=== PATIENT | male | born 1990 | race Caucasian/White ===

== ENCOUNTER 2019-01-03 23:24 | Emergency (ER) | payer SELFPAY ==
[2019-01-04] MEDS ORDERED: CEPHALEXIN 500 MG CAPSULE PO ONE (00:52)
[2019-01-04] MEDS ORDERED: LIDOCAINE 2% URO-JET 5 ML KIT MM ONE (01:02)
[2019-01-04] MEDS ORDERED: HYDROCODONE/ACETAMINOPHEN 5-325 MG TABLET PO ONE (01:02)
[2019-01-04 01:17] VITALS: BP 140/82
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
--- NOTE | 2019-01-05 07:41 | EKG REPORT ---
SEVERITY:- ABNORMAL ECG - SINUS TACHYCARDIA BORDERLINE T ABNORMALITIES, INFERIOR LEADS BORDERLINE PROLONGED QT INTERVAL INCOMPLETE RBBB : Confirmed by: Jon Prajapati MD 05-Jan-2019 07:39:53
== END 2019-01-04 01:17 | disposition home or self-care (01) ==
LOC: ER 23:24
DX: S31.109A Unspecified open wound of abdominal wall, unspecified quadrant without penetration into peritoneal cavity, initial encounter (principal); W34.00XA Accidental discharge from unspecified firearms or gun, initial encounter; F17.210 Nicotine dependence, cigarettes, uncomplicated; I10 Essential (primary) hypertension
CPT/HCPCS: 93005; 99285; 93010; J3490

== ENCOUNTER 2019-09-27 14:00 | Emergency (ER) | payer SELFPAY ==
--- NOTE | 2019-09-27 15:45 | ER Document Report ---
ED Cardiac - General Chief Complaint: Chest Pain Stated Complaint: CHEST PAIN Time Seen by Provider: 09/27/19 15:18 Mode of Arrival: Ambulatory Information source: Patient Notes: 29-year-old male presents to the emergency department with a complaint of severe pain on the left side of his chest radiating around his scapula. He was at work at the time of onset of pain. He states pain is a 9/10. He has a history of coarctation of the aorta. Never followed up with his cardiothoracic surgery f for repair. He denies that he is severe pain like this in the past. Patient does admit to using cocaine and heroin last night. He was at work today when his pain began. TRAVEL OUTSIDE OF THE [place] IN LAST 30 DAYS: No - Related Data Allergies/Adverse Reactions: Sulfa (Sulfonamide Antibiotics) Allergy (Verified 12/03/14 09:54) Past Medical History - Social History Smoking Status: Unknown if Ever Smoked Family History: Reviewed & Not Pertinent - Past Medical History Cardiac Medical History: Reports: Hx Hypertension Renal/ Medical History: Denies: Hx Peritoneal Dialysis Skin Medical History: Reports Hx Cellulitis Past Surgical History: Reports: Hx Cardiac Catheterization - Immunizations Hx Diphtheria, Pertussis, Tetanus Vaccination: Yes Review of Systems - Review of Systems Notes: Constitutional: Negative for fever. HENT: Negative for sore throat. Eyes: Negative for visual changes. Cardiovascular: + Chest pain. Respiratory: Negative for shortness of breath. Gastrointestinal: Negative for abdominal pain, vomiting or diarrhea. Genitourinary: Negative for dysuria. Musculoskeletal: Negative for back pain. Skin: Negative for rash. Neurological: Negative for headaches, weakness or numbness. 10 point ROS negative except as marked above and in HPI. Physical Exam - Vital signs Vitals: Temp Pulse Resp BP Pulse Ox 97.4 F 80 16 138/83 H 99 09/27/19 14:01 09/27/19 14:01 09/27/19 14:09/27/19 14:09/27/19 14:01 - Notes Notes: PHYSICAL EXAMINATION: Physical Exam: General: Well-nourished well-developed 29-year-old male in no acute distress HEENT: NC/AT, pupils equal round and reactive to light, MM moist,nares clear, oropharynx clear, airway patent Neck: supple, no adenopathy, no masses. Good range of motion Lungs: clear, no wheezing, no rales no rhonchi CVS: Regular rate and rhythm no murmur gallop or rub Abdomen: Soft, active, nontender, no masses, no hepatosplenomegaly Ext: No edema, clubbing or cyanosis. Neuro: Alert and responsive, moving all 4 extremities on command, cranial nerves intact, no focal findings Skin: Intact no open lesions, no rash PSYCH: Normal mood, normal affect. Course - Vital Signs Vital signs: Temp Pulse Resp BP Pulse Ox 98.3 F 80 21 H 115/72 94 09/27/19 18:50 09/27/19 14:01 09/27/19 18:31 09/27/19 18:31 09/27/19 18:31 - Laboratory Result Diagrams: 09/27/19 14:28 09/27/19 14:28 Laboratory results interpreted by me: 09/27/19 09/27/19 14:28 14:28 WBC 10.6 H MCHC 36.4 H Sodium 135.8 L - Diagnostic Test Radiology reviewed: Image reviewed, Reports reviewed - Chest x-ray: No acute cardiopulmonary findings CTA chest with no acute cardiopulmonary abnormalities. - EKG Interpretation by Me EKG shows normal: Sinus rhythm Rate: Normal - Rate of 74. Discharge - Discharge Clinical Impression: Non-cardiac chest pain, Musculoskeletal chest pain Condition: Good Disposition: HOME, SELF-CARE Instructions: Chest Pain of Unclear Cause ([facility]) Additional Instructions: You were seen in the emergency department today for your chest pain, it does not appear to be of acute cardiovascular origin. You may use the ibuprofen and muscle relaxant as prescribed for your chest pain. I would advise you to just discontinue the use of any illicit drugs. The listed drugs such as cocaine or heroin can sometimes cause vascular spasms which could cause symptoms of chest pain. Given your normal EKG, labs, x-ray imaging no acute injury to your heart or lungs has occurred. Please follow-up with a primary care doctor as needed, I will give you the name of an outpatient clinic that you might schedule a follow- up with. If you develop new problems or other concerns you return to the emergency department. Prescriptions: Baclofen [Baclofen 10 mg Tablet] 10 mg PO TID #14 tablet Naproxen [Naprosyn] 500 mg PO BID #20 tablet Forms: Return to Work
--- NOTE | 2019-09-27 16:35 | RADIOLOGY REPORT (SQ) ---
EXAM DESCRIPTION: CHEST SINGLE VIEW IMAGES COMPLETED DATE/TIME: 09/27/2019 4:27 pm REASON FOR STUDY: Chest pain COMPARISON: None. EXAM PARAMETERS: NUMBER OF VIEWS: One view. TECHNIQUE: Single frontal radiographic view of the chest acquired. RADIATION DOSE: NA LIMITATIONS: None. FINDINGS: LUNGS AND PLEURA: No opacities, masses or pneumothorax. No pleural effusion. MEDIASTINUM AND HILAR STRUCTURES: No masses. Contour normal. HEART AND VASCULAR STRUCTURES: Borderline cardiomegaly. Normal vasculature. BONES: No acute findings. HARDWARE: None in the chest. OTHER: No other significant finding. IMPRESSION: NO ACUTE RADIOGRAPHIC FINDING IN THE CHEST. TECHNICAL DOCUMENTATION: JOB ID: [id number] 2010 [employer]- All Rights Reserved Reading location - IP/workstation name: [email or web address]
--- NOTE | 2019-09-27 16:56 | RADIOLOGY REPORT (SQ) ---
EXAM DESCRIPTION: CTA CHEST IMAGES COMPLETED DATE/TIME: 09/27/2019 4:32 pm REASON FOR STUDY: chest Pain COMPARISON: None. TECHNIQUE: CT scan of the chest performed using helical scanning technique with dynamic intravenous contrast injection. Images reviewed with lung, soft tissue and bone windows. Reconstructed coronal and sagittal MPR images reviewed. Additional 3 dimensional post-processing performed to develop Maximal Intensity Projection images (IN P). All images stored on PACS. All CT scanners at this facility use dose modulation, iterative reconstruction, and/or weight based d osing when appropriate to reduce radiation dose to as low as reasonably achievable (ALARA). [facility]: Dose Right [facility]: CareDose [facility]: Dose Right [facility]: Teradose 4D [facility]: Alector CONTRAST TYPE AND DOSE: contrast/concentration: Isovue 350.00 mg/ml; Total Contrast Delivered: 56.0 ml; Total Saline Delivered: 80.0 ml Contrast bolus optimized for the pulmonary arteries. Not diagnostic for the aorta. RENAL FUNCTION: None required. The patient is less than 50 years old. RADIATION DOSE: CT Rad equipment meets quality standard of care and radiation dose reduction techniq ues were employed. CTDIvol: 15.6 - 30.0 mGy. DLP: 703 mGy-cm. . LIMITATIONS: None. FINDINGS: LUNGS AND PLEURA: No focal infiltrates. No worrisome pulmonary nodules. No pleural effusions. No pneumothorax. AORTA AND GREAT VESSELS: Patient gives a history of coarctation of the aorta. There is mild aortic w all calcification just distal to the left subclavian artery. This is best shown on reconstruction se basia 203, images 27-34. No flow significant stenosis of the thoracic aorta in this area. No thoraci c aortic dissection or great vessel dissection. No thoracic aortic aneurysm. HEART: No pericardial effusion. No significant coronary artery calcifications. PULMONARY ARTERIES: No emboli visualized in the main pulmonary arteries or the segmental branches. HILAR AND MEDIASTINAL STRUCTURES: No identified masses or abnormal nodes. HARDWARE: None in the chest. UPPER ABDOMEN: No significant findings. Limited exam. THYROID AND OTHER SOFT TISSUES: No masses. No adenopathy. BONES: No acute or significant finding. 3D MIPS: Confirm above findings. OTHER: No other significant finding. IMPRESSION: No thoracic aortic dissection or aneurysm. Aortic wall calcification just distal to the left subclavian artery in the area of prior coarct. COMMENT: Quality ID # [id number]: Final reports with documentation of one or more dose reduction techniques (e.g., Automated exposure control, adjustment of the mA and/or kV according to patient size, use of iterative reconstruction technique) TECHNICAL DOCUMENTATION: JOB ID: [id number] 2010 [employer]- All Rights Reserved Reading location - IP/workstation name: [id number]
[2019-09-27 17:16] LABS: ABSOLUTE EOSINOPHILS # (AUTO) 0.1 10^3/uL (0.0-0.6); ABSOLUTE MONOCYTES (AUTO) 0.9 10^3/uL (0.1-1.4); MEAN CORPUSCULAR HEMOGLOBIN 30.2 pg (27.0-33.4); RED BLOOD COUNT 4.95 10^6/uL (4.35-5.55); TOTAL CELLS COUNTED % (AUTO) 100 %
[2019-09-27 17:22] LABS: ABSOLUTE LYMPHOCYTES (AUTO) 1.5 10^3/uL (0.5-4.7); BASOPHILS % (AUTO) 0.2 % (0-2); EOSINOPHILS % (AUTO) 0.9 % (0-6); HEMATOCRIT 41.2 % (37.9-51.0); LYMPHOCYTES % (AUTO) 14.4 % (13-45); MEAN CORPUSCULAR HGB CONC 36.4 g/dL (32.0-36.0); MEAN CORPUSCULAR VOLUME 83 fl (80-97); MONOCYTES % (AUTO) 8.6 % (3-13); PLATELET COUNT 229 10^3/uL (150-450); RED CELL DISTRIBUTION WIDTH 13.7 % (11.5-14.0); SEGMENTED NEUTROPHILS % (AUTO) 75.9 % (42-78); WHITE BLOOD COUNT 10.6 10^3/uL (4.0-10.5)
[2019-09-27 17:24] LABS: ALBUMIN 4.3 g/dL (3.5-5.0); ALKALINE PHOSPHATASE 65 U/L (38-126); ANION GAP 9 (5-19); ASPARTATE AMINO TRANSFERASE 29 U/L (17-59); BILIRUBIN,TOTAL 0.3 mg/dL (0.2-1.3); BLOOD UREA NITROGEN 19 mg/dL (7-20); CALCIUM 9.4 mg/dL (8.4-10.2); CARBON DIOXIDE 26 mmol/L (22-30); CHLORIDE 101 mmol/L (98-107); CREATINE KINASE 79 U/L (55-170); GLUCOSE 95 mg/dL (75-110); POTASSIUM 3.8 mmol/L (3.6-5.0); TOTAL PROTEIN 7.2 g/dL (6.3-8.2)
[2019-09-27 17:36] LABS: CREATINE KINASE MB 0.78 ng/mL (<4.55)
[2019-09-27 18:00] LABS: TROPONIN I < 0.012 ng/mL
[2019-09-27] MEDS ORDERED: KETOROLAC TROMETHAMINE INJ/PF 30 MG/1 ML SDV IV ONE (18:13)
[2019-09-27 18:45] VITALS: BP 115/72
[2019-09-27 20:03] LABS: URINE AMPHETAMINES SCREEN NEGATIVE; URINE BARBITURATES SCREEN NEGATIVE; URINE BENZODIAZEPINES SCREEN NEGATIVE; URINE METHADONE SCREEN NEGATIVE; URINE PHENCYCLIDINE SCREEN NEGATIVE
[2019-09-27 20:04] LABS: URINE COCAINE SCREEN UNCONFIRMED POSITIVE; URINE MARIJUANA (THC) SCREEN UNCONFIRMED POSITIVE
--- NOTE | 2019-09-27 21:56 | EKG REPORT ---
SEVERITY:- ABNORMAL ECG - SINUS RHYTHM NONSPECIFIC T ABNORMALITIES, INFERIOR LEADS : Confirmed by: Mariam Murcia MD 27-Sep-2019 21:55:52
== END 2019-09-27 18:50 | disposition home or self-care (01) ==
LOC: ER 14:00
DX: R07.89 Other chest pain (principal); I10 Essential (primary) hypertension; Q25.1 Coarctation of aorta; Z88.2 Allergy status to sulfonamides
CPT/HCPCS: 93005; 99285; 96374; 36415; 82553; 82550; 85025; 80053; 84484; 80307; 71045; 71275; 93010; J1885

== ENCOUNTER 2020-02-18 04:55 | Inpatient (IN) | payer SELFPAY ==
[2020-02-18] MEDS ORDERED: NORMAL SALINE 1000 ML 1,000 ML IV ONE ×5 (06:37→11:30)
[2020-02-18] MEDS ORDERED: KETOROLAC TROMETHAMINE INJ/PF 30 MG/1 ML SDV IV ONE (06:37)
--- NOTE | 2020-02-18 07:02 | ER Document Report ---
Entered by AJAY FRAGA SCRIBE 02/18/20 0642 Acting as scribe for:ROSALIE DONOHUE MD ED General - General Chief Complaint: Pain All Over Stated Complaint: BODY PAIN Time Seen by Provider: 02/18/20 06:15 Mode of Arrival: Ambulatory Information source: Patient Notes: This 29 year old male patient presents to the emergency department today with complaints of left shoulder, left hip, and left posterior knee pain. Patient reports that he felt fine when he went to bed last night and he was awoken with this pain at 3:00 AM. He reports taking a hot shower prior to arrival with no relief. He denies any falls or trauma. This patient admitted to IV heroin usage, cocaine, and marijuana during his last visit this ED. TRAVEL OUTSIDE OF THE [place] IN LAST 30 DAYS: No - Related Data Allergies/Adverse Reactions: Sulfa (Sulfonamide Antibiotics) Allergy (Verified 12/03/14 09:54) Past Medical History - General Information source: Patient - Social History Smoking Status: Current Every Day Smoker Cigarette use (# per day): Yes Chew tobacco use (# tins/day): No Frequency of alcohol use: None Drug Abuse: None Lives with: Family Family History: Reviewed & Not Pertinent Patient has homicidal ideation: No - Past Medical History Cardiac Medical History: Reports: Hx Hypertension Skin Medical History: Reports Hx Cellulitis Past Surgical History: Reports: Hx Cardiac Catheterization, Hx Vascular Surgery - Stent in right groin as a child - Immunizations Hx Diphtheria, Pertussis, Tetanus Vaccination: Yes Review of Systems - Review of Systems Constitutional: No symptoms reported EENT: No symptoms reported Cardiovascular: No symptoms reported Respiratory: No symptoms reported Gastrointestinal: No symptoms reported Genitourinary: No symptoms reported Male Genitourinary: No symptoms reported Musculoskeletal: See HPI, Joint pain - Left shoulder, Left hip, Left knee, Muscle pain, Muscle stiffness Skin: No symptoms reported Hematologic/Lymphatic: No symptoms reported Neurological/Psychological: No symptoms reported -: Yes All other systems reviewed and negative Physical Exam - Vital signs Vitals: Temp 97.8 F 02/18/20 05:04 - Notes Notes: Physical Exam: General: Alert, appears uncomfortable. HEENT: Normocephalic. Atraumatic. PERRL. Extraocular movements intact. Oropharynx clear. Neck: Supple. Non-tender. Respiratory: No respiratory distress. Clear and equal breath sounds bilaterally. Cardiovascular: Regular rate and rhythm. Abdominal: Normal Inspection. Non-tender. No distension. Normal Bowel Sounds. Back: No gross abnormalities. Extremities: Moves all four extremities. Upper extremities: Left shoulder is exquisitely tender to palpation with associated swelling, joint effusion. Lower extremities: There is tenderness to palpation of the left hip/buttock. Minimal tenderness to left posterior knee. Neurological: Normal cognition. AAOx4. Normal speech. Psychological: Normal affect. Normal Mood. Skin: Warm. Dry. Normal color. Course - Re-evaluation Re-evalutation: 02/18/20 11:15 The patient was evaluated during the global COVID-19 pandemic and that diagnosis was suspected/considered upon their initial presentation. Their evaluation, treatment and testing was consistent with current guidelines for patients who present with complaints or symptoms that may be related to COVID-19. - Vital Signs Vital signs: Temp Pulse Resp BP Pulse Ox 97.8 F 99 16 152/86 H 100 02/18/20 05:06 02/18/20 05:06 02/18/20 14:01 02/18/20 13:19 02/18/20 14:01 - Laboratory Result Diagrams: 02/18/20 06:57 02/18/20 06:57 Laboratory results interpreted by me: 02/18/20 02/18/20 02/18/20 06:57 06:57 06:57 WBC 16.4 H RBC 5.67 H Lymph % (Auto) 10.1 L Absolute Neuts (auto) 13.4 H Seg Neutrophils % 81.7 H Carbon Dioxide 31 H BUN 24 H Creatinine 2.17 H Est GFR ( Amer) 44 L Est GFR (MDRD) Non-Af 37 L Uric Acid 10.1 H AST 734 H ALT 134 H Creatine Kinase 72083 H CK-MB (CK-2) 86.10 H C-Reactive Protein 56.7 H Urine Protein Urine Blood 02/18/20 07:35 WBC RBC Lymph % (Auto) Absolute Neuts (auto) Seg Neutrophils % Carbon Dioxide BUN Creatinine Est GFR ( Amer) Est GFR (MDRD) Non-Af Uric Acid AST ALT Creatine Kinase CK-MB (CK-2) C-Reactive Protein Urine Protein 100 H Urine Blood LARGE H Critical Care Note - Critical Care Note Total time excluding time spent on procedures (mins): 35 Comments: At least 35 minutes spent evaluating the patient with physical exam, laboratory analysis, review of prior records. Several re-evaluations to ensure he was improving, to ensure that he was in fact getting the fluids as they were being ordered to manage his acute kidney injury. Time spent calling hospitalists to arrange his admission. Discharge - Discharge Clinical Impression: Dehydration, Acute kidney injury, Multiple substance abuse Gout attack Qualifiers: Gout site: multiple sites Gout etiology: unspecified cause Qualified Code(s): M10.9 - Gout, unspecified Rhabdomyolysis Qualifiers: Rhabdomyolysis type: non-traumatic Qualified Code(s): M62.82 - Rhabdomyolysis Condition: Stable Disposition: ADMITTED INPATIENT Admitting Provider: Wilbert (Hospitalist) Unit Admitted: IMCU I personally performed the services described in the documentation, reviewed and edited the documentation which was dictated to the scribe in my presence, and it accurately records my words and actions.
[2020-02-18 07:19] LABS: ABSOLUTE LYMPHOCYTES (AUTO) 1.7 10^3/uL (0.5-4.7); ABSOLUTE MONOCYTES (AUTO) 1.3 10^3/uL (0.1-1.4); ABSOLUTE NEUT (AUTO) 13.4 10^3/uL (1.7-8.2); BASOPHILS % (AUTO) 0.3 % (0-2); EOSINOPHILS % (AUTO) 0.2 % (0-6); HEMATOCRIT 47.8 % (37.9-51.0); HEMOGLOBIN 16.7 g/dL (13.5-17.0); LYMPHOCYTES % (AUTO) 10.1 % (13-45); MEAN CORPUSCULAR HEMOGLOBIN 29.5 pg (27.0-33.4); MEAN CORPUSCULAR VOLUME 84 fl (80-97); MONOCYTES % (AUTO) 7.7 % (3-13); PLATELET COUNT 219 10^3/uL (150-450); RED BLOOD COUNT 5.67 10^6/uL (4.35-5.55); RED CELL DISTRIBUTION WIDTH 13.4 % (11.5-14.0); SEGMENTED NEUTROPHILS % (AUTO) 81.7 % (42-78); TOTAL CELLS COUNTED % (AUTO) 100 %; WHITE BLOOD COUNT 16.4 10^3/uL (4.0-10.5)
[2020-02-18 07:47] LABS: ALBUMIN 4.3 g/dL (3.5-5.0); ALKALINE PHOSPHATASE 68 U/L (38-126); ANION GAP 8 (5-19); BILIRUBIN,DIRECT 0.4 mg/dL (0.0-0.4); BILIRUBIN,TOTAL 0.5 mg/dL (0.2-1.3); BLOOD UREA NITROGEN 24 mg/dL (7-20); C-REACTIVE PROTEIN 56.7 mg/L (<10.0); CALCIUM 8.6 mg/dL (8.4-10.2); CARBON DIOXIDE 31 mmol/L (22-30); CHLORIDE 98 mmol/L (98-107); GLUCOSE 89 mg/dL (75-110); POTASSIUM 4.2 mmol/L (3.6-5.0); TOTAL PROTEIN 7.2 g/dL (6.3-8.2); URIC ACID 10.1 mg/dL (3.5-8.5)
[2020-02-18 07:51] LABS: ASPARTATE AMINO TRANSFERASE 734 U/L (17-59)
[2020-02-18] MEDS ORDERED: METHYLPREDNISOLONE INJ 125 MG/2 ML SDV IV ONE (08:04)
[2020-02-18] MEDS ORDERED: COLCHICINE 0.6 MG TABLET PO ONE (08:06)
[2020-02-18 08:12] LABS: ERYTHROCYTE SEDIMENTATION RATE 12 mm/hr (0-15)
[2020-02-18 08:12] LABS: APPEARANCE,URINE SLIGHTLY-CLOUDY; BILIRUBIN,URINE NEGATIVE (NEGATIVE); COLOR,URINE AMBER; GLUCOSE, URINE NEGATIVE (NEGATIVE); KETONES,URINE NEGATIVE (NEGATIVE); LEUKOCYTE ESTERASE,URINE NEGATIVE (NEGATIVE); NITRITE,URINE NEGATIVE (NEGATIVE); PROTEIN,URINE 100 mg/dL (NEGATIVE); URINE SPECIFIC GRAVITY 1.019; UROBILINOGEN,URINE NEGATIVE mg/dL (<2.0)
[2020-02-18 08:19] LABS: URINE AMPHETAMINES SCREEN NEGATIVE; URINE BARBITURATES SCREEN NEGATIVE; URINE COCAINE SCREEN NEGATIVE; URINE METHADONE SCREEN NEGATIVE; URINE PHENCYCLIDINE SCREEN NEGATIVE
[2020-02-18 08:24] LABS: URINE BENZODIAZEPINES SCREEN UNCONFIRMED POSITIVE; URINE MARIJUANA (THC) SCREEN UNCONFIRMED POSITIVE
[2020-02-18 08:35] LABS: CREATINE KINASE 54834 U/L (55-170)
[2020-02-18] MEDS ORDERED: HYDROMORPHONE HCL INJ/PF 2 MG/ML AMPULE IV ONE (10:36)
[2020-02-18] MEDS ORDERED: ONDANSETRON HCL INJ/PF 4 MG/2 ML SDV IV ONE (10:36)
--- NOTE | 2020-02-18 11:11 | PDOC H&P ---
History of Present Illness Admission Date/PCP: 02/18/2020 Patient complains of: Joint pains History of Present Illness: SAAD POLLOCK is a 29 year old male with history of hypertension, drug abuse came to the emergency room with complaints of waking up with left hip pain left shoulder pain. Came to the emergency room for further evaluation. In the emergency room found to have a CK of 54,800 with elevated LFTs, acute kidney injury. Medical consult was called for admission. pt received 2 L of IV fluids in the ER at this time. Patient admitted snoring heroine yesterday. Past Medical History Cardiac Medical History: Reports: Hypertension Past Surgical History Past Surgical History: Reports: Cardiac Catheterization, Vascular Surgery - Stent in right groin as a child Social History Lives with: Family Smoking Status: Current Every Day Smoker Electronic Cigarette use?: No Hx Recreational Drug Use: Yes Drugs: Heroin, Marijuana - Advance Directive Resuscitation Status: Full Code Family History Family History: Reviewed & Not Pertinent Parental Family History Reviewed: Yes - Hypertension Children Family History Reviewed: Yes Sibling(s) Family History Reviewed.: Yes Medication/Allergy Home Medications: Clindamycin HCl [Cleocin 150 mg Capsule] 150 mg PO Q6 #40 capsule 12/03/14 Oxycodone HCl/Acetaminophen [Percocet 5-325 mg Tablet] 1 - 2 tab PO Q4H PRN #15 tablet 12/03/14 Clindamycin HCl [Cleocin 300 mg Capsule] 600 mg PO TID #42 capsule 01/17/16 Oxycodone HCl/Acetaminophen [Percocet 5-325 mg Tablet] 1 - 2 tab PO ASDIR PRN #15 tablet 01/17/16 Cephalexin Monohydrate [Keflex 500 mg Capsule] 500 mg PO Q6H 7 Days capsule 01/04/19 Baclofen [Baclofen 10 mg Tablet] 10 mg PO TID #14 tablet 09/27/19 Naproxen [Naprosyn] 500 mg PO BID #20 tablet 09/27/19 Allergies/Adverse Reactions: Sulfa (Sulfonamide Antibiotics) Allergy (Verified 12/03/14 09:54) Review of Systems Constitutional: PRESENT: fever(s) Eyes: ABSENT: visual disturbances Ears: ABSENT: hearing changes Nose, Mouth, and Throat: PRESENT: sore throat Gastrointestinal: ABSENT: abdominal pain, constipation, diarrhea, hematemesis, hematochezia, nausea, vomiting Genitourinary: ABSENT: dysuria, hematuria Musculoskeletal: PRESENT: back pain, joint swelling Neurological: ABSENT: abnormal gait, abnormal speech, confusion, dizziness, focal weakness, syncope Psychiatric: ABSENT: anxiety, depression, homidical ideation, suicidal ideation Physical Exam Vital Signs: Temp Pulse Resp BP Pulse Ox 97.8 F 99 22 H 150/90 H 95 02/18/20 05:06 02/18/20 05:06 02/18/20 05:06 02/18/20 05:06 02/18/20 05:06 Intake & Output 02/17/20 02/18/20 02/19/20 06:59 06:59 06:59 Intake Total 1999 Balance 1999 Weight 83.915 kg General appearance: PRESENT: no acute distress, cooperative, well-developed Head exam: PRESENT: atraumatic Eye exam: PRESENT: PERRLA Mouth exam: PRESENT: moist, tongue midline Neck exam: ABSENT: carotid bruit, JVD, lymphadenopathy, thyromegaly Respiratory exam: PRESENT: decreased breath sounds Cardiovascular exam: PRESENT: RRR. ABSENT: diastolic murmur, rubs, systolic murmur GI/Abdominal exam: PRESENT: normal bowel sounds, soft. ABSENT: distended, guarding, mass, organolmegaly, rebound, tenderness Rectal exam: PRESENT: deferred Extremities exam: PRESENT: full ROM. ABSENT: calf tenderness, clubbing, pedal edema Neurological exam: PRESENT: alert, awake, oriented to person, oriented to place, oriented to time, oriented to situation, CN II-XII grossly intact. ABSENT: motor sensory deficit Psychiatric exam: PRESENT: appropriate affect, normal mood. ABSENT: homicidal ideation, suicidal ideation Results Laboratory Results: 02/18/20 06:57 02/18/20 06:57 02/18/20 02/18/20 02/18/20 06:57 06:57 07:35 WBC 16.4 H RBC 5.67 H Hgb 16.7 Hct 47.8 MCV 84 MCH 29.5 MCHC 35.0 RDW 13.4 Plt Count 219 Seg Neutrophils % 81.7 H Sodium 137.2 Potassium 4.2 Chloride 98 Carbon Dioxide 31 H Anion Gap 8 BUN 24 H Creatinine 2.17 H Est GFR ( Amer) 44 L Glucose 89 Uric Acid 10.1 H Calcium 8.6 Magnesium 1.7 Total Bilirubin 0.5 AST 734 H Alkaline Phosphatase 68 C-Reactive Protein 56.7 H Total Protein 7.2 Albumin 4.3 Urine Color LUBNA Urine Appearance SLIGHTLY-CLOUDY Urine pH 5.0 Ur Specific Garita 1.019 Urine Protein 100 H Urine Glucose (UA) NEGATIVE Urine Ketones NEGATIVE Urine Blood LARGE H Urine Nitrite NEGATIVE Ur Leukocyte Esterase NEGATIVE Urine WBC (Auto) 9 Urine RBC (Auto) 1 02/18/20 06:57 Creatine Kinase 86415 H Assessment and Plan - Diagnosis (1) Rhabdomyolysis Qualifiers: Rhabdomyolysis type: non-traumatic Qualified Code(s): M62.82 - Rhabdomyolysis Is this a current diagnosis for this admission?: Yes Plan: 02/18/2020-patient is going to be admitted to [facility] for rhabdomyolysis of 54,800. Admitted as inpatient. Started on IV fluids to 500 cc/h. Patient received 2 L of IV fluids in the ER. Repeat the CK levels tomorrow. GI prophylaxis DVT prophylaxis initiated. Rhabdomyolysis most likely secondary to heroin use. (2) Multiple substance abuse Is this a current diagnosis for this admission?: Yes Plan: 02/18/2020-urine toxin is positive for opiates, marijuana, benzodiazepines. Patient admitted to snorting heroine. Counseling was provided for more than 20 minutes. (3) LISA (acute kidney injury) Is this a current diagnosis for this admission?: Yes Plan: 02/18/2020-patient's baseline serum creatinine is 0.75 on admission is 2.17. LISA most likely secondary to rhabdomyolysis. (4) Coarctation of aorta Is this a current diagnosis for this admission?: No Plan: 02/18/2020-patient is given the history of coarctation of aorta status post surgery at the age of 2 weeks. - Time Anticipated Discharge Disposition: Home, Self Care Anticipated Discharge Timeframe: within 72 hours
[2020-02-18 11:15] LABS: CREATINE KINASE MB 86.1 ng/mL (<4.55)
[2020-02-18 11:22] LABS: TROPONIN I 0.307 ng/mL
[2020-02-18] MEDS: NORMAL SALINE 1000 ML 1,000 ML IV PRN ×2 (11:56→18:31)
[2020-02-18] MEDS: HEPARIN SOD (PORCINE) 5,000 UNIT/ML 1 ML VIAL SUBCUT SCH ×2 (14:23→22:19)
[2020-02-18] MEDS: METHYLPREDNISOLONE INJ 40 MG/1 ML SDV IV SCH ×2 (14:23→22:19)
[2020-02-18] MEDS: ONDANSETRON HCL INJ/PF 4 MG/2 ML SDV IV PRN ×2 (17:24→23:52)
[2020-02-18] MEDS: PANTOPRAZOLE SODIUM 40 MG TABLET.DR PO SCH (17:24)
[2020-02-18 17:25] LABS: CREATINE KINASE MB 57.8 ng/mL (<4.55)
[2020-02-18] MEDS ORDERED: MAGNESIUM CITRATE 296 ML BOTTLE PO ONE (17:33)
[2020-02-18 17:34] LABS: TROPONIN I 0.13 ng/mL
[2020-02-18] MEDS: MORPHINE SULFATE 10 MG/ML INJ IV PRN ×2 (17:41→23:51)
--- NOTE | 2020-02-18 18:15 | RADIOLOGY REPORT (SQ) ---
EXAM DESCRIPTION: KUB/ABDOMEN (SINGLE VIEW) IMAGES COMPLETED DATE/TIME: 02/18/2020 6:04 pm REASON FOR STUDY: abd pain COMPARISON: None. NUMBER OF VIEWS: One view. TECHNIQUE: Supine radiographic image of the abdomen acquired. LIMITATIONS: None. FINDINGS: BOWEL GAS PATTERN: Normal bowel gas pattern. No dilated loops. Prominent stool throughout the colon. CALCIFICATIONS: No suspicious calcifications. SOFT TISSUES: No gross mass or suggestion of organomegaly. HARDWARE: None in the abdomen. BONES: No acute fracture. No worrisome bone lesions. OTHER: No other significant finding. IMPRESSION: NO RADIOGRAPHIC EVIDENCE FOR ACUTE ABDOMINAL DISEASE. PROMINENT STOOL THROUGHOUT THE CO ZAIDA, POSSIBLE CONSTIPATION. TECHNICAL DOCUMENTATION: JOB ID: [id number] [employer]- All Rights Reserved Reading location - IP/workstation name: [email or web address]
[2020-02-18] MEDS: NICOTINE 21 MG/24 HR PATCH.TD24 TD PRN (18:25)
--- NOTE | 2020-02-18 19:00 | EKG REPORT ---
SEVERITY:- ABNORMAL ECG - SINUS RHYTHM PROLONGED QT INTERVAL : Confirmed by: Mariam Murcia MD 18-Feb-2020 18:58:50
[2020-02-18 22:11] LABS: ABSOLUTE LYMPHOCYTES (AUTO) 0.9 10^3/uL (0.5-4.7); BASOPHILS % (AUTO) 0.1 % (0-2); TOTAL CELLS COUNTED % (AUTO) 100 %
[2020-02-18 22:15] LABS: ALBUMIN 3.4 g/dL (3.5-5.0); ALKALINE PHOSPHATASE 62 U/L (38-126); ANION GAP 9 (5-19); ASPARTATE AMINO TRANSFERASE 645 U/L (17-59); BILIRUBIN,DIRECT 0.2 mg/dL (0.0-0.4); BILIRUBIN,TOTAL 0.3 mg/dL (0.2-1.3); BLOOD UREA NITROGEN 33 mg/dL (7-20); CALCIUM 7.8 mg/dL (8.4-10.2); CHLORIDE 106 mmol/L (98-107); GLUCOSE 124 mg/dL (75-110); TOTAL PROTEIN 6.1 g/dL (6.3-8.2)
[2020-02-18 22:30] LABS: CREATINE KINASE MB 54.7 ng/mL (<4.55); TROPONIN I 0.113 ng/mL
[2020-02-18 22:35] LABS: CARBON DIOXIDE 19 mmol/L (22-30); POTASSIUM 5.4 mmol/L (3.6-5.0)
[2020-02-18 22:39] LABS: ABSOLUTE MONOCYTES (AUTO) 0.2 10^3/uL (0.1-1.4); ABSOLUTE NEUT (AUTO) 14.7 10^3/uL (1.7-8.2); HEMATOCRIT 45.6 % (37.9-51.0); HEMOGLOBIN 15.6 g/dL (13.5-17.0); LYMPHOCYTES % (AUTO) 5.7 % (13-45); MEAN CORPUSCULAR HEMOGLOBIN 29.2 pg (27.0-33.4); MEAN CORPUSCULAR HGB CONC 34.2 g/dL (32.0-36.0); MEAN CORPUSCULAR VOLUME 85 fl (80-97); MONOCYTES % (AUTO) 1.3 % (3-13); PLATELET COUNT 145 10^3/uL (150-450); RED BLOOD COUNT 5.34 10^6/uL (4.35-5.55); RED CELL DISTRIBUTION WIDTH 13.4 % (11.5-14.0); SEGMENTED NEUTROPHILS % (AUTO) 92.9 % (42-78); WHITE BLOOD COUNT 15.8 10^3/uL (4.0-10.5)
[2020-02-19] MEDS ORDERED: SODIUM POLYSTYRENE SULFONATE 15 GM/60 ML PO ONE (03:28)
[2020-02-19] MEDS ORDERED: CALCIUM GLUCONATE 1000 MG/10 ML INJ IV ONE (03:28)
[2020-02-19] MEDS: PROMETHAZINE HCL INJ 25 MG/1 ML VIAL IV PRN (04:13)
[2020-02-19] MEDS: NORMAL SALINE 1000 ML 1,000 ML IV PRN ×5 (04:18→22:40)
[2020-02-19] MEDS: MORPHINE SULFATE 10 MG/ML INJ IV PRN ×4 (04:31→22:21)
[2020-02-19] MEDS: METHYLPREDNISOLONE INJ 40 MG/1 ML SDV IV SCH ×3 (05:17→22:23)
[2020-02-19] MEDS: PANTOPRAZOLE SODIUM 40 MG TABLET.DR PO SCH ×2 (05:17→17:46)
[2020-02-19] MEDS: HEPARIN SOD (PORCINE) 5,000 UNIT/ML 1 ML VIAL SUBCUT SCH ×3 (05:17→22:13)
[2020-02-19 06:59] LABS: ABSOLUTE MONOCYTES (AUTO) 0.6 10^3/uL (0.1-1.4); ABSOLUTE NEUT (AUTO) 16.8 10^3/uL (1.7-8.2); BASOPHILS % (AUTO) 0.1 % (0-2); LYMPHOCYTES % (AUTO) 5.6 % (13-45); MEAN CORPUSCULAR HEMOGLOBIN 29.1 pg (27.0-33.4); MEAN CORPUSCULAR VOLUME 83 fl (80-97); MONOCYTES % (AUTO) 3.2 % (3-13); PLATELET COUNT 158 10^3/uL (150-450); RED BLOOD COUNT 4.81 10^6/uL (4.35-5.55); RED CELL DISTRIBUTION WIDTH 13.3 % (11.5-14.0); SEGMENTED NEUTROPHILS % (AUTO) 91.1 % (42-78); TOTAL CELLS COUNTED % (AUTO) 100 %; WHITE BLOOD COUNT 18.4 10^3/uL (4.0-10.5)
[2020-02-19 07:55] LABS: ALBUMIN 3.2 g/dL (3.5-5.0); ALKALINE PHOSPHATASE 55 U/L (38-126); ANION GAP 7 (5-19); ASPARTATE AMINO TRANSFERASE 473 U/L (17-59); BILIRUBIN,DIRECT 0.4 mg/dL (0.0-0.4); BILIRUBIN,TOTAL 0.4 mg/dL (0.2-1.3); BLOOD UREA NITROGEN 39 mg/dL (7-20); CALCIUM 8.3 mg/dL (8.4-10.2); CARBON DIOXIDE 18 mmol/L (22-30); CHLORIDE 112 mmol/L (98-107); CHOLESTEROL 131.42 mg/dL (0-200); GLUCOSE 121 mg/dL (75-110); POTASSIUM 4.6 mmol/L (3.6-5.0); TOTAL PROTEIN 6.3 g/dL (6.3-8.2); TRIGLYCERIDES 138 mg/dL (<150)
[2020-02-19 08:02] LABS: CREATINE KINASE MB 35.8 ng/mL (<4.55); DIRECT LDL 72 mg/dL (<100)
--- NOTE | 2020-02-19 09:45 | PDOC PROGRESS REPORT ---
Subjective Progress Note for:: 02/19/20 Subjective:: 29 year old male with history of hypertension, drug abuse came to the emergency room with complaints of waking up with left hip pain left shoulder pain. Came to the emergency room for further evaluation. In the emergency room found to have a CK of 54,800 with elevated LFTs, acute kidney injury. Medical consult was called for admission. pt received 2 L of IV fluids in the ER at this time. Patient admitted snoring heroine yesterday. [id number] male with heroin abuse admitted for LISA and rhabdomyolysis. On admission CK level is 56,000 with aggressive hydration came down to 26,500. Pulse ox is 97% room air not in fluid overload. Urinary output is around 550 cc in the last 24 hours. To watch for the fluid overload at this time. Reason For Visit: RHABDOMYOLYSIS Physical Exam Vital Signs: Temp Pulse Resp BP Pulse Ox 97.8 F 50 L 18 157/98 H 100 02/19/20 07:59 02/19/20 07:59 02/19/20 07:59 02/19/20 07:59 02/19/20 07:59 Intake & Output 02/18/20 02/19/20 02/20/20 06:59 06:59 06:59 Intake Total 7690 Output Total 550 Balance 7140 Weight 83.915 kg 94.4 kg General appearance: PRESENT: no acute distress, cooperative, well-developed Head exam: PRESENT: atraumatic Eye exam: PRESENT: PERRLA Ear exam: PRESENT: normal external ear exam Mouth exam: PRESENT: neck supple Teeth exam: PRESENT: poor dentation Neck exam: ABSENT: carotid bruit, JVD, lymphadenopathy, thyromegaly Respiratory exam: PRESENT: decreased breath sounds Cardiovascular exam: PRESENT: RRR. ABSENT: diastolic murmur, rubs, systolic murmur GI/Abdominal exam: PRESENT: normal bowel sounds, soft. ABSENT: distended, guarding, mass, organolmegaly, rebound, tenderness Rectal exam: PRESENT: deferred Extremities exam: PRESENT: full ROM. ABSENT: calf tenderness, clubbing, pedal edema Neurological exam: PRESENT: alert, awake, oriented to person, oriented to place, oriented to time, oriented to situation, CN II-XII grossly intact. ABSENT: motor sensory deficit Psychiatric exam: PRESENT: appropriate affect, normal mood. ABSENT: homicidal ideation, suicidal ideation Results Laboratory Results: 02/19/20 06:47 02/19/20 06:47 02/18/20 02/18/20 02/19/20 21:40 21:40 06:47 WBC 15.8 H 18.4 H RBC 5.34 4.81 Hgb 15.6 14.0 Hct 45.6 40.0 MCV 85 83 MCH 29.2 29.1 MCHC 34.2 35.0 RDW 13.4 13.3 Plt Count 145 L 158 Seg Neutrophils % 92.9 H 91.1 H Sodium 134.4 L Potassium 5.4 H D Chloride 106 Carbon Dioxide 19 L D Anion Gap 9 BUN 33 H Creatinine 2.66 H Est GFR ( Amer) 35 L Glucose 124 H Calcium 7.8 L Magnesium Total Bilirubin 0.3 AST 645 H Alkaline Phosphatase 62 Total Protein 6.1 L Albumin 3.4 L Triglycerides Cholesterol LDL Cholesterol Direct VLDL Cholesterol HDL Cholesterol Lipase 02/19/20 06:47 WBC RBC Hgb Hct MCV MCH MCHC RDW Plt Count Seg Neutrophils % Sodium 137.4 Potassium 4.6 Chloride 112 H Carbon Dioxide 18 L Anion Gap 7 BUN 39 H Creatinine 2.87 H Est GFR ( Amer) 32 L Glucose 121 H Calcium 8.3 L Magnesium 1.8 Total Bilirubin 0.4 AST 473 H Alkaline Phosphatase 55 Total Protein 6.3 Albumin 3.2 L Triglycerides 138 Cholesterol 131.42 LDL Cholesterol Direct 72 VLDL Cholesterol 28.0 HDL Cholesterol 30 L Lipase 54.0 02/18/20 02/18/20 02/18/20 06:57 06:57 16:40 Creatine Kinase 61458 H CK-MB (CK-2) 86.10 H 57.80 H Troponin I 0.307 0.130 NT-Pro-B Natriuret Pep 02/18/20 02/19/20 02/19/20 21:40 06:47 06:47 Creatine Kinase 37487 H CK-MB (CK-2) 54.70 H 35.80 H Troponin I 0.113 NT-Pro-B Natriuret Pep 2170 H Impressions: KUB X-Ray 02/18/20 00:00 IMPRESSION: NO RADIOGRAPHIC EVIDENCE FOR ACUTE ABDOMINAL DISEASE. PROMINENT STOOL THROUGHOUT THE COLON, POSSIBLE CONSTIPATION. Assessment and Plan - Diagnosis (1) Rhabdomyolysis Qualifiers: Rhabdomyolysis type: non-traumatic Qualified Code(s): M62.82 - Rhabdomyolysis Is this a current diagnosis for this admission?: Yes Plan: 02/18/2020-patient is going to be admitted to [facility] for rhabdomyolysis of 54,800. Admitted as inpatient. Started on IV fluids to 500 cc/h. Patient received 2 L of IV fluids in the ER. Repeat the CK levels tomorrow. GI prophylaxis DVT prophylaxis initiated. Rhabdomyolysis most likely secondary to heroin use. 02/19/2020-with aggressive IV hydration CK improved to 26,500 today. Plan is to continue IV fluids and to watch for fluid overload. (2) Multiple substance abuse Is this a current diagnosis for this admission?: Yes Plan: 02/18/2020-urine toxin is positive for opiates, marijuana, benzodiazepines. Patient admitted to snorting heroine. Counseling was provided for more than 20 minutes. (3) LISA (acute kidney injury) Is this a current diagnosis for this admission?: Yes Plan: 02/18/2020-patient's baseline serum creatinine is 0.75 on admission is 2.17. LISA most likely secondary to rhabdomyolysis. 02/19/2020-despite aggressive IV hydration creatinine is 2.87. Plan is to continue the present management if needed, nephrology consult will be requested tomorrow. (4) Coarctation of aorta Is this a current diagnosis for this admission?: No Plan: 02/18/2020-patient is given the history of coarctation of aorta status post surgery at the age of 2 weeks. - Time Anticipated Discharge Disposition: Home, Self Care Anticipated Discharge Timeframe: within 72 hours
[2020-02-19] MEDS: FEBUXOSTAT 80 MG TABLET PO SCH (10:27)
[2020-02-19] MEDS: NICOTINE 21 MG/24 HR PATCH.TD24 TD PRN (10:29)
[2020-02-19] MEDS: ONDANSETRON HCL INJ/PF 4 MG/2 ML SDV IV PRN (20:09)
[2020-02-20] MEDS: PROMETHAZINE HCL INJ 25 MG/1 ML VIAL IV PRN (01:52)
[2020-02-20] MEDS: MORPHINE SULFATE 10 MG/ML INJ IV PRN ×4 (02:47→21:34)
[2020-02-20] MEDS: NORMAL SALINE 1000 ML 1,000 ML IV PRN ×4 (02:48→18:29)
[2020-02-20] MEDS: HEPARIN SOD (PORCINE) 5,000 UNIT/ML 1 ML VIAL SUBCUT SCH ×3 (05:41→21:27)
[2020-02-20] MEDS: METHYLPREDNISOLONE INJ 40 MG/1 ML SDV IV SCH ×3 (05:45→21:34)
[2020-02-20] MEDS: PANTOPRAZOLE SODIUM 40 MG TABLET.DR PO SCH ×2 (05:46→16:24)
[2020-02-20 06:10] LABS: ABSOLUTE LYMPHOCYTES (AUTO) 0.8 10^3/uL (0.5-4.7); ABSOLUTE MONOCYTES (AUTO) 0.6 10^3/uL (0.1-1.4); ABSOLUTE NEUT (AUTO) 10.3 10^3/uL (1.7-8.2); BASOPHILS % (AUTO) 0.1 % (0-2); HEMATOCRIT 37.7 % (37.9-51.0); LYMPHOCYTES % (AUTO) 6.6 % (13-45); MEAN CORPUSCULAR HEMOGLOBIN 29.4 pg (27.0-33.4); MEAN CORPUSCULAR HGB CONC 34.4 g/dL (32.0-36.0); MEAN CORPUSCULAR VOLUME 85 fl (80-97); MONOCYTES % (AUTO) 4.9 % (3-13); PLATELET COUNT 145 10^3/uL (150-450); RED BLOOD COUNT 4.42 10^6/uL (4.35-5.55); RED CELL DISTRIBUTION WIDTH 13.5 % (11.5-14.0); SEGMENTED NEUTROPHILS % (AUTO) 88.4 % (42-78); TOTAL CELLS COUNTED % (AUTO) 100 %; WHITE BLOOD COUNT 11.7 10^3/uL (4.0-10.5)
[2020-02-20 06:36] LABS: ALBUMIN 2.8 g/dL (3.5-5.0); ALKALINE PHOSPHATASE 53 U/L (38-126); ANION GAP 10 (5-19); ASPARTATE AMINO TRANSFERASE 202 U/L (17-59); BILIRUBIN,DIRECT 0.2 mg/dL (0.0-0.4); BILIRUBIN,TOTAL 0.3 mg/dL (0.2-1.3); CALCIUM 7.8 mg/dL (8.4-10.2); CARBON DIOXIDE 17 mmol/L (22-30); CHLORIDE 111 mmol/L (98-107); GLUCOSE 101 mg/dL (75-110); POTASSIUM 4.5 mmol/L (3.6-5.0); TOTAL PROTEIN 5.2 g/dL (6.3-8.2)
[2020-02-20 06:37] LABS: BLOOD UREA NITROGEN 38 mg/dL (7-20)
[2020-02-20 07:43] LABS: CREATINE KINASE 13589 U/L (55-170)
--- NOTE | 2020-02-20 09:13 | PDOC PROGRESS REPORT ---
Subjective Progress Note for:: 02/20/20 Subjective:: 29 year old male with history of hypertension, drug abuse came to the emergency room with complaints of waking up with left hip pain left shoulder pain. Came to the emergency room for further evaluation. In the emergency room found to have a CK of 54,800 with elevated LFTs, acute kidney injury. Medical consult was called for admission. pt received 2 L of IV fluids in the ER at this time. Patient admitted snoring heroine yesterday. 02/19/20 29-year-old male with heroin abuse admitted for LISA and rhabdomyolysis. On admission CK level is 56,000 with aggressive hydration came down to 26,500. Pulse ox is 97% room air not in fluid overload. Urinary output is around 550 cc in the last 24 hours. To watch for the fluid overload at this time. 02/20/[birth year]95-89-yvva-old male admitted for LISA and rhabdomyolysis. Rhabdomyolysis is improving LISA slightly improved. Consultation with nephrology is requested. Urinary output is 2.6 L yesterday. No acute events in last 24 hours. Afebrile. Reason For Visit: RHABDOMYOLYSIS Physical Exam Vital Signs: Temp Pulse Resp BP Pulse Ox 97.2 F 44 L 18 144/81 H 100 02/20/20 07:28 02/20/20 07:28 02/20/20 07:28 02/20/20 07:28 02/20/20 07:28 Intake & Output 02/19/20 02/20/20 02/21/20 06:59 06:59 06:59 Intake Total 7690 7076 Output Total 550 2675 Balance 7140 4401 Weight 94.4 kg 97.1 kg General appearance: PRESENT: no acute distress, well-developed Head exam: PRESENT: atraumatic Eye exam: PRESENT: PERRLA Mouth exam: PRESENT: moist, tongue midline Neck exam: ABSENT: carotid bruit, JVD, lymphadenopathy, thyromegaly Respiratory exam: PRESENT: decreased breath sounds Cardiovascular exam: PRESENT: RRR. ABSENT: diastolic murmur, rubs, systolic murmur GI/Abdominal exam: PRESENT: normal bowel sounds, soft. ABSENT: distended, guarding, mass, organolmegaly, rebound, tenderness Rectal exam: PRESENT: deferred Neurological exam: PRESENT: alert, awake, oriented to person, oriented to place, oriented to time, oriented to situation, CN II-XII grossly intact. ABSENT: motor sensory deficit Psychiatric exam: PRESENT: appropriate affect, normal mood. ABSENT: homicidal ideation, suicidal ideation Results Laboratory Results: 02/20/20 05:38 02/20/20 05:38 02/19/20 02/20/20 02/20/20 06:47 05:38 05:38 WBC 11.7 H RBC 4.42 Hgb 13.0 L Hct 37.7 L MCV 85 MCH 29.4 MCHC 34.4 RDW 13.5 Plt Count 145 L Seg Neutrophils % 88.4 H Sodium 137.6 Potassium 4.5 Chloride 111 H Carbon Dioxide 17 L Anion Gap 10 BUN 38 H Creatinine 2.40 H Est GFR ( Amer) 39 L Glucose 101 Calcium 7.8 L Magnesium 1.7 Total Bilirubin 0.3 AST 202 H Alkaline Phosphatase 53 Total Protein 5.2 L Albumin 2.8 L TSH 0.36 L 02/18/20 02/18/20 02/18/20 06:57 06:57 16:40 Creatine Kinase 57123 H CK-MB (CK-2) 86.10 H 57.80 H Troponin I 0.307 0.130 NT-Pro-B Natriuret Pep 02/18/20 02/19/20 02/19/20 21:40 06:47 06:47 Creatine Kinase 34416 H CK-MB (CK-2) 54.70 H 35.80 H Troponin I 0.113 NT-Pro-B Natriuret Pep 2170 H 02/20/20 05:38 Creatine Kinase 47265 H CK-MB (CK-2) Troponin I NT-Pro-B Natriuret Pep Impressions: KUB X-Ray 02/18/20 00:00 IMPRESSION: NO RADIOGRAPHIC EVIDENCE FOR ACUTE ABDOMINAL DISEASE. PROMINENT STOOL THROUGHOUT THE COLON, POSSIBLE CONSTIPATION. Assessment and Plan - Diagnosis (1) Rhabdomyolysis Qualifiers: Rhabdomyolysis type: non-traumatic Qualified Code(s): M62.82 - Rhabdomyolysis Is this a current diagnosis for this admission?: Yes Plan: 02/18/2020-patient is going to be admitted to [facility] for rhabdomyolysis of 54,800. Admitted as inpatient. Started on IV fluids to 500 cc/h. Patient received 2 L of IV fluids in the ER. Repeat the CK levels tomorrow. GI prophylaxis DVT prophylaxis initiated. Rhabdomyolysis most likely secondary to heroin use. 02/19/2020-with aggressive IV hydration CK improved to 26,500 today. Plan is to continue IV fluids and to watch for fluid overload. 02/20/20-latest CK is 13,589. Plan is to decrease the IV fluids to 25 cc/h. To continue to check kidney function and CK levels on daily basis. Consultation with nephrology is requested. (2) Multiple substance abuse Is this a current diagnosis for this admission?: Yes Plan: 02/18/2020-urine toxin is positive for opiates, marijuana, benzodiazepines. Patient admitted to snorting heroine. Counseling was provided for more than 20 minutes. (3) LISA (acute kidney injury) Is this a current diagnosis for this admission?: Yes Plan: 02/18/2020-patient's baseline serum creatinine is 0.75 on admission is 2.17. LISA most likely secondary to rhabdomyolysis. 02/19/2020-despite aggressive IV hydration creatinine is 2.87. Plan is to continue the present management if needed, nephrology consult will be requested tomorrow. (4) Coarctation of aorta Is this a current diagnosis for this admission?: No Plan: 02/18/2020-patient is given the history of coarctation of aorta status post surgery at the age of 2 weeks. - Time Anticipated Discharge Disposition: Home, Self Care Anticipated Discharge Timeframe: within 48 hours
[2020-02-20] MEDS: FEBUXOSTAT 80 MG TABLET PO SCH (10:27)
[2020-02-20] MEDS: NICOTINE 21 MG/24 HR PATCH.TD24 TD PRN (10:28)
[2020-02-20] MEDS: ONDANSETRON HCL INJ/PF 4 MG/2 ML SDV IV PRN ×2 (13:29→21:42)
[2020-02-20] MEDS: ACETAMINOPHEN 650 MG SUPP.RECT PR PRN (19:49)
--- NOTE | 2020-02-20 20:44 | PDOC CONSULTATION ---
Consultation Consult Date: 02/20/20 Provider Consulted: MACHELLE CROUCH Consult reason:: LISA History of Present Illness Admission Date/PCP: 02/18/20 11:28 History of Present Illness: SAAD POLLOCK is a 29 year old male with history of hypertension and polysubstance abuse who was admitted on February 18, 2020 presenting with left hip and shoulder pain. 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 He thought that caused his left hip and shoulder pain. Upon presentation his CPK was 54,834 with BUN of 24, and creatinine of 2.17. His baseline creatinine in September 27, 2019 was 0.75. His urinalysis showed protein of 100, large blood with only 1 RBC. Patient was aggressively hydrated and so far is +11 L since admission. He is making acceptable urine output, making thousand 475 mL of urine for the past 24 hours. His creatinine has peaked to 2.87 yesterday. Today he has a BUN of 38, creatinine of 2.4 associated with bicarbonate of 17 which was previously 31 on admission. His CPK currently is 13,589. Patient admits that the he had dark Pepsi cola colored urine about a day prior to adm ission but currently his urine has lightened up to light yellow. He did not notice any decreased urine output prior to admission. He denies any previous history of kidney disease, kidney stones. He reports that he has decreased appetite and has not been eating nor drinking much normally. Upon presentation he admitted having some nausea, vomiting, abdominal pain and constipation. He also said that he felt tired and no energy with some numbness on his toes. He otherwise denies any chest pains, shortness of breath, fever nor cough. 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 2 weeks old Past Surgical History Past Surgical History: Reports: Cardiac Catheterization, Vascular Surgery - Stent in right groin as a child Social History Lives with: Family - With cousin Smoking Status: Current Every Day Smoker Cigarettes Packs Per Day: 1.5 Electronic Cigarette use?: No Frequency of Alcohol Use: Occasional Hx Recreational Drug Use: Yes Drugs: Cocaine, Heroin, Marijuana, Other - Opiates - Advance Directive Resuscitation Status: Full Code Family History Family History: CAD - Maternal grandfather, DM - Father and paternal grandfather Parental Family History Reviewed: Yes Children Family History Reviewed: Yes Sibling(s) Family History Reviewed.: Yes Medication/Allergy Home Medications: No Home Medications 02/18/20 Allergies/Adverse Reactions: Sulfa (Sulfonamide Antibiotics) Allergy (Verified 12/03/14 09:54) Review of Systems All systems: reviewed and no additional remarkable complaints except as stated Review of Systems: Constitutional: ABSENT: chills, fever(s), headache(s), weight gain, weight loss; admits fatigue and no energy, admits decrease in appetite Eyes: ABSENT: visual disturbances Ears: ABSENT: hearing changes Cardiovascular: ABSENT: chest pain, dyspnea on exertion, edema, orthropnea, palpitations Respiratory: ABSENT: cough, dyspnea, hemoptysis Gastrointestinal: ABSENT: diarrhea, hematemesis, hematochezia; admits abdominal pain, constipation, nausea, vomiting on presentation Genitourinary: ABSENT: dysuria, hematuria Musculoskeletal: ABSENT: joint swelling; reports left hip and shoulder pain Integumentary: ABSENT: rash, wounds Neurological: ABSENT: abnormal gait, abnormal speech, confusion, dizziness, focal weakness, numbness, syncope Psychiatric: ABSENT: anxiety, depression Endocrine: ABSENT: cold intolerance, heat intolerance, polydipsia, polyuria Hematologic/Lymphatic: ABSENT: easy bleeding, easy bruising, lymphadenopathy Physical Exam Vital Signs: Temp Pulse Resp BP Pulse Ox 97.8 F 68 16 142/84 H 100 02/20/20 12:00 02/20/20 12:00 02/20/20 12:00 02/20/20 12:00 02/20/20 12:00 Intake & Output 02/19/20 02/20/20 02/21/20 06:59 06:59 06:59 Intake Total 7690 7076 300 Output Total 844 2675 Balance 7140 4401 300 Weight 94.4 kg 97.1 kg 97.1 kg Exam: General appearance: No acute distress, cooperative, well-developed, well-nouris hed Head exam: PRESENT: atraumatic, normocephalic Eye exam: PRESENT: Conjunctiva [place], EOMI, PERRLA. ABSENT: conjunctival injection, scleral icterus Mouth exam: PRESENT: moist, neck supple, tongue midline Neck exam: PRESENT: full ROM. ABSENT: carotid bruit, JVD, lymphadenopathy, thyromegaly Respiratory exam: PRESENT: clear to auscultation bilaterally. ABSENT: rales, rhonchi, stridor, wheezes Cardiovascular exam: PRESENT: RRR, +S1, +S2. ABSENT: systolic murmur Pulses: PRESENT: normal radial pulses, normal dorsalis pedis pulses GI/Abdominal exam: PRESENT: normal bowel sounds, soft. Lower abdominal mild tenderness ABSENT: guarding, mass Rectal exam: Deferred Extremities exam: PRESENT: full ROM. ABSENT: calf tenderness, pedal edema Musculoskeletal: PRESENT: full ROM. ABSENT: deformity Neurological exam: PRESENT: alert, Awake, Oriented to person, Oriented to place, Oriented to time, reflexes normal, CN II-XII grossly intact. ABSENT: motor sensory deficit Psychiatric exam: PRESENT: appropriate affect, normal mood. ABSENT: homicidal ideation, suicidal ideation Skin exam: PRESENT: intact, dry, warm. ABSENT: rash Results Laboratory Results: 02/20/20 05:38 02/20/20 05:38 02/20/20 02/20/20 05:38 05:38 WBC 11.7 H RBC 4.42 Hgb 13.0 L Hct 37.7 L MCV 85 MCH 29.4 MCHC 34.4 RDW 13.5 Plt Count 145 L Seg Neutrophils % 88.4 H Sodium 137.6 Potassium 4.5 Chloride 111 H Carbon Dioxide 17 L Anion Gap 10 BUN 38 H Creatinine 2.40 H Est GFR ( Amer) 39 L Glucose 101 Calcium 7.8 L Magnesium 1.7 Total Bilirubin 0.3 AST 202 H Alkaline Phosphatase 53 Total Protein 5.2 L Albumin 2.8 L 02/18/20 02/18/20 02/18/20 06:57 06:57 16:40 Creatine Kinase 52672 H CK-MB (CK-2) 86.10 H 57.80 H Troponin I 0.307 0.130 NT-Pro-B Natriuret Pep 02/18/20 02/19/20 02/19/20 21:40 06:47 06:47 Creatine Kinase 42972 H CK-MB (CK-2) 54.70 H 35.80 H Troponin I 0.113 NT-Pro-B Natriuret Pep 2170 H 02/20/20 05:38 Creatine Kinase 73188 H CK-MB (CK-2) Troponin I NT-Pro-B Natriuret Pep Impressions: KUB X-Ray 02/18/20 00:00 IMPRESSION: NO RADIOGRAPHIC EVIDENCE FOR ACUTE ABDOMINAL DISEASE. PROMINENT STOOL THROUGHOUT THE COLON, POSSIBLE CONSTIPATION. Assessment & Plan - Diagnosis (1) LISA (acute kidney injury) Is this a current diagnosis for this admission?: Yes Plan: Nonoliguric. 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 Baseline creatinine of 0.75 rising to 2.87 and currently 2.4. Continue IV fluid hydration. No indication for any renal replacement therapy. Continue to monitor kidney function. (2) Rhabdomyolysis Qualifiers: Rhabdomyolysis type: non-traumatic Qualified Code(s): M62.82 - Rhabdomyolysis Is this a current diagnosis for this admission?: Yes Plan: IV fluid hydration. (3) Metabolic acidosis Is this a current diagnosis for this admission?: Yes Plan: Due to hydration. (4) Multiple substance abuse Is this a current diagnosis for this admission?: Yes - Notes Notes: Thank you very much for this consultation. Discussed with Wilbert Duarte.
[2020-02-21] MEDS: MORPHINE SULFATE 10 MG/ML INJ IV PRN ×5 (01:40→20:01)
[2020-02-21] MEDS: HEPARIN SOD (PORCINE) 5,000 UNIT/ML 1 ML VIAL SUBCUT SCH ×3 (05:54→21:26)
[2020-02-21] MEDS: METHYLPREDNISOLONE INJ 40 MG/1 ML SDV IV SCH ×3 (06:01→21:26)
[2020-02-21] MEDS: PANTOPRAZOLE SODIUM 40 MG TABLET.DR PO SCH ×2 (06:01→16:48)
[2020-02-21] MEDS: ONDANSETRON HCL INJ/PF 4 MG/2 ML SDV IV PRN ×3 (06:10→23:09)
[2020-02-21] MEDS: NORMAL SALINE 1000 ML 1,000 ML IV PRN ×2 (06:14→15:19)
[2020-02-21 07:07] LABS: ALBUMIN 3.4 g/dL (3.5-5.0); ALKALINE PHOSPHATASE 66 U/L (38-126); ANION GAP 8 (5-19); ASPARTATE AMINO TRANSFERASE 148 U/L (17-59); BILIRUBIN,DIRECT 0.3 mg/dL (0.0-0.4); BILIRUBIN,TOTAL 0.4 mg/dL (0.2-1.3); BLOOD UREA NITROGEN 37 mg/dL (7-20); CALCIUM 8.8 mg/dL (8.4-10.2); CARBON DIOXIDE 21 mmol/L (22-30); CHLORIDE 111 mmol/L (98-107); GLUCOSE 110 mg/dL (75-110); POTASSIUM 4.6 mmol/L (3.6-5.0); TOTAL PROTEIN 6.2 g/dL (6.3-8.2)
[2020-02-21] MEDS: FEBUXOSTAT 80 MG TABLET PO SCH (11:23)
[2020-02-21] MEDS: PROMETHAZINE HCL INJ 25 MG/1 ML VIAL IV PRN ×2 (11:30→20:07)
--- NOTE | 2020-02-21 12:26 | PDOC PROGRESS REPORT ---
Subjective Progress Note for:: 02/21/20 Subjective:: The patient is resting in bed. He is mumbling all of his answers but the nurse states that he does this all of the time. He still complains of diffuse muscular pain due to the rhabdo. Urine output remains quite good. Reason For Visit: RHABDOMYOLYSIS Physical Exam Vital Signs: Temp Pulse Resp BP Pulse Ox 97.3 F 60 18 160/90 H 100 02/21/20 12:12 02/21/20 12:12 02/21/20 12:12 02/21/20 12:21 02/21/20 12:12 Intake & Output 02/20/20 02/21/20 02/22/20 06:59 06:59 06:59 Intake Total 7002 3300 Output Total 2675 1625 Balance 4401 1675 Weight 97.1 kg 101.5 kg General appearance: PRESENT: no acute distress, cooperative - Not extremely cooperative but did not refuse to answer any questions., well-developed, well- nourished Head exam: PRESENT: atraumatic, normocephalic Eye exam: PRESENT: conjunctiva pink. ABSENT: scleral icterus Ear exam: PRESENT: normal external ear exam. ABSENT: bleeding, drainage Mouth exam: PRESENT: moist, tongue midline Respiratory exam: PRESENT: clear to auscultation [place], symmetrical, unlabored. ABSENT: prolonged expiratory phas, rales, rhonchi, tachypnea, wheezes Cardiovascular exam: PRESENT: RRR, +S1, +S2, systolic murmur - 2/6 GI/Abdominal exam: PRESENT: normal bowel sounds, soft. ABSENT: distended, tenderness Rectal exam: PRESENT: deferred Extremities exam: ABSENT: pedal edema Musculoskeletal exam: PRESENT: ambulatory, normal inspection. ABSENT: deformity, dislocation Neurological exam: PRESENT: alert, awake, oriented to person, oriented to place, oriented to situation, other Psychiatric exam: PRESENT: flat affect. ABSENT: agitated, anxious Focused psych exam: ABSENT: delusional, paranoid, restlessness Skin exam: PRESENT: dry, normal color, warm. ABSENT: rash Results Laboratory Results: 02/20/20 05:38 02/21/20 06:01 02/21/20 06:01 Sodium 140.1 Potassium 4.6 Chloride 111 H Carbon Dioxide 21 L Anion Gap 8 BUN 37 H Creatinine 2.28 H Est GFR ( Amer) 42 L Glucose 110 Calcium 8.8 Total Bilirubin 0.4 AST 148 H Alkaline Phosphatase 66 Total Protein 6.2 L Albumin 3.4 L 02/18/20 02/18/20 02/18/20 06:57 06:57 16:40 Creatine Kinase 09351 H CK-MB (CK-2) 86.10 H 57.80 H Troponin I 0.307 0.130 NT-Pro-B Natriuret Pep 02/18/20 02/19/20 02/19/20 21:40 06:47 06:47 Creatine Kinase 28029 H CK-MB (CK-2) 54.70 H 35.80 H Troponin I 0.113 NT-Pro-B Natriuret Pep 2170 H 02/20/20 02/21/20 05:38 06:01 Creatine Kinase 08373 H CK-MB (CK-2) 7.57 H Troponin I NT-Pro-B Natriuret Pep Impressions: KUB X-Ray 02/18/20 00:00 IMPRESSION: NO RADIOGRAPHIC EVIDENCE FOR ACUTE ABDOMINAL DISEASE. PROMINENT STOOL THROUGHOUT THE COLON, POSSIBLE CONSTIPATION. Assessment and Plan - Diagnosis (1) Rhabdomyolysis Qualifiers: Rhabdomyolysis type: non-traumatic Qualified Code(s): M62.82 - Rhabdomyolysis Is this a current diagnosis for this admission?: Yes Plan: Likely multifactorial. Creatinine kinase is slowly improving. Continue aggressive IV fluids. Patient complains of myalgias. Continue supportive care with analgesia. (2) LISA (acute kidney injury) Is this a current diagnosis for this admission?: Yes Plan: Secondary to rhabdomyolysis. Nephrology is following. Continue IV fluids. Monitor renal function. Avoid nephrotoxic medications if possible (3) Multiple substance abuse Is this a current diagnosis for this admission?: Yes Plan: Patient admits to snorting heroin. In addition to the tox screen showing positive for opiates, benzodiazepines and marijuana were also positive. Encourage cessation of illicit drug use. Consider rehab. (4) Acute hepatic failure Qualifiers: Hepatic coma status: without hepatic coma Qualified Code(s): K72.00 - Acute and subacute hepatic failure without coma Is this a current diagnosis for this admission?: Yes Plan: Secondary to the acute insult from rhabdomyolysis. Transaminases are improving. Unfortunately PT/INR and ammonia levels were never checked. I have ordered both. Continue IV fluids and monitor liver function. - Time Time Spent with patient: 15-24 minutes Medications reviewed and adjusted accordingly: Yes Anticipated Discharge Disposition: Home, Self Care Anticipated Discharge Timeframe: within 72 hours
[2020-02-21] MEDS: NICOTINE 21 MG/24 HR PATCH.TD24 TD PRN (13:02)
[2020-02-21] MEDS: HYDRALAZINE HCL INJ/PF 20 MG/1 ML SDV IV PRN (13:02)
--- NOTE | 2020-02-21 22:29 | PDOC PROGRESS REPORT ---
Subjective Progress Note for:: 02/21/20 Subjective:: This morning the patient said he feels like he is getting bloated so he asked the nurse earlier this morning to hold his IV fluids. His IV fluids has since been resumed. He is still making adequate amount of urine with urine output of 1625 mL for the past 24 hours and fluid balance of 675 mL. He has no other complaints. Reason For Visit: RHABDOMYOLYSIS Physical Exam Vital Signs: Temp Pulse Resp BP Pulse Ox 97.3 F 76 18 156/85 H 100 02/21/20 10:00 02/21/20 08:10 02/21/20 08:10 02/21/20 08:10 02/21/20 08:10 Intake & Output 02/20/20 02/21/20 02/22/20 06:59 06:59 06:59 Intake Total 7076 3300 Output Total 2675 1625 Balance 4401 1675 Weight 97.1 kg 101.5 kg Exam: General appearance: PRESENT: no acute distress, cooperative, well-developed, well-nourished Head exam: PRESENT: atraumatic, normocephalic Eye exam: PRESENT: conjunctiva pink, PERRLA. ABSENT: scleral icterus Neck exam: ABSENT: JVD Respiratory exam: PRESENT: Diminished breath sounds. ABSENT: crackles, rales, rhonchi, unlabored, wheezes Cardiovascular exam: PRESENT: Regular rate rhythm -+S1, +S2. ABSENT: diastolic murmur, systolic murmur GI/Abdominal exam: PRESENT: normal bowel sounds, soft. ABSENT: guarding, mass, tenderness Extremities exam: Bilateral upper extremity pitting edema with minimal trace bilateral lower extremity edema Neurological exam: PRESENT: alert, awake, oriented to person, place and time. Skin exam: PRESENT: dry, warm, Results Laboratory Results: 02/20/20 05:38 02/21/20 06:01 02/21/20 06:01 Sodium 140.1 Potassium 4.6 Chloride 111 H Carbon Dioxide 21 L Anion Gap 8 BUN 37 H Creatinine 2.28 H Est GFR ( Amer) 42 L Glucose 110 Calcium 8.8 Total Bilirubin 0.4 AST 148 H Alkaline Phosphatase 66 Total Protein 6.2 L Albumin 3.4 L 02/18/20 02/18/20 02/18/20 06:57 06:57 16:40 Creatine Kinase 78791 H CK-MB (CK-2) 86.10 H 57.80 H Troponin I 0.307 0.130 NT-Pro-B Natriuret Pep 02/18/20 02/19/20 02/19/20 21:40 06:47 06:47 Creatine Kinase 07251 H CK-MB (CK-2) 54.70 H 35.80 H Troponin I 0.113 NT-Pro-B Natriuret Pep 2170 H 02/20/20 02/21/20 05:38 06:01 Creatine Kinase 07851 H CK-MB (CK-2) 7.57 H Troponin I NT-Pro-B Natriuret Pep Impressions: KUB X-Ray 02/18/20 00:00 IMPRESSION: NO RADIOGRAPHIC EVIDENCE FOR ACUTE ABDOMINAL DISEASE. PROMINENT STOOL THROUGHOUT THE COLON, POSSIBLE CONSTIPATION. Assessment & Plan - Diagnosis (1) LISA (acute kidney injury) Is this a current diagnosis for this admission?: Yes Plan: Nonoliguric. 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 Baseline creatinine of 0.75 rising to 2.87 and currently 2.28. Continue IV fluid hydration. In view of developing peripheral edema, probably need to decrease IV fluid rate. No indication for any renal replacement therapy. Continue to monitor kidney function. (2) Rhabdomyolysis Qualifiers: Rhabdomyolysis type: non-traumatic Qualified Code(s): M62.82 - Rhabdomyolysis Is this a current diagnosis for this admission?: Yes Plan: IV fluid hydration. (3) Metabolic acidosis Is this a current diagnosis for this admission?: Yes Plan: Improving kidney function. (4) Multiple substance abuse Is this a current diagnosis for this admission?: Yes - Time Time with patient: 15-25 minutes
[2020-02-21] MEDS: ACETAMINOPHEN 650 MG SUPP.RECT PR PRN (23:05)
[2020-02-22] MEDS: MORPHINE SULFATE 10 MG/ML INJ IV PRN ×2 (00:09→04:12)
[2020-02-22] MEDS: NORMAL SALINE 1000 ML 1,000 ML IV PRN ×2 (00:11→21:03)
[2020-02-22] MEDS: PROMETHAZINE HCL INJ 25 MG/1 ML VIAL IV PRN (02:16)
[2020-02-22] MEDS: HEPARIN SOD (PORCINE) 5,000 UNIT/ML 1 ML VIAL SUBCUT SCH ×3 (05:12→20:59)
[2020-02-22] MEDS: PANTOPRAZOLE SODIUM 40 MG TABLET.DR PO SCH ×2 (05:18→16:11)
[2020-02-22] MEDS: METHYLPREDNISOLONE INJ 40 MG/1 ML SDV IV SCH ×4 (05:25→21:02)
[2020-02-22] MEDS: HYDRALAZINE HCL INJ/PF 20 MG/1 ML SDV IV PRN ×2 (06:29→16:11)
[2020-02-22 06:32] LABS: ANION GAP 7 (5-19); BLOOD UREA NITROGEN 31 mg/dL (7-20); CALCIUM 8.6 mg/dL (8.4-10.2); CARBON DIOXIDE 21 mmol/L (22-30); CHLORIDE 113 mmol/L (98-107); GLUCOSE 108 mg/dL (75-110); PHOSPHORUS 2.7 mg/dL (2.5-4.5); POTASSIUM 4.1 mmol/L (3.6-5.0)
[2020-02-22 06:57] LABS: CREATINE KINASE 5759 U/L (55-170)
[2020-02-22 07:24] LABS: ALKALINE PHOSPHATASE 58 U/L (38-126); ASPARTATE AMINO TRANSFERASE 94 U/L (17-59); BILIRUBIN,DIRECT 0.3 mg/dL (0.0-0.4); BILIRUBIN,TOTAL 0.4 mg/dL (0.2-1.3); TOTAL PROTEIN 5.4 g/dL (6.3-8.2)
[2020-02-22] MEDS ORDERED: PROMETHAZINE HCL 25 MG TABLET PO PRN (07:43)
[2020-02-22] MEDS: FEBUXOSTAT 80 MG TABLET PO SCH (10:17)
[2020-02-22] MEDS: ACETAMINOPHEN 325 MG TABLET PO PRN ×2 (13:31→18:00)
--- NOTE | 2020-02-22 15:28 | PDOC PROGRESS REPORT ---
Subjective Progress Note for:: 02/22/20 Subjective:: Still complains of myalgias. Creatinine kinase and renal function continue to improve. Reason For Visit: RHABDOMYOLYSIS Physical Exam Vital Signs: Temp Pulse Resp BP Pulse Ox 98.2 F 70 16 150/84 H 100 02/22/20 10:00 02/22/20 07:42 02/22/20 07:42 02/22/20 07:42 02/22/20 04:23 Intake & Output 02/21/20 02/22/20 02/23/20 06:59 06:59 06:59 Intake Total 3300 4455 Output Total 1625 3040 Balance 1675 1415 Weight 101.5 kg 102 kg General appearance: PRESENT: cooperative, well-developed, other - Moderate di stress Head exam: PRESENT: atraumatic, normocephalic Respiratory exam: PRESENT: clear to auscultation [place], symmetrical, unlabored. ABSENT: rales, rhonchi, tachypnea, wheezes Cardiovascular exam: PRESENT: RRR, +S1, +S2. ABSENT: bradycardia, diastolic murmur, irregular rhythm, systolic murmur, tachycardia GI/Abdominal exam: PRESENT: normal bowel sounds, soft. ABSENT: distended, tenderness Rectal exam: PRESENT: deferred Gentrourinary exam: ABSENT: indwelling catheter Extremities exam: PRESENT: calf tenderness. ABSENT: pedal edema Musculoskeletal exam: PRESENT: ambulatory, normal inspection. ABSENT: deformity, dislocation Neurological exam: PRESENT: alert, awake, oriented to person, oriented to place, oriented to time, oriented to situation, CN II-XII grossly intact Psychiatric exam: PRESENT: appropriate affect - Affect reflects discomfort. ABSENT: agitated, anxious Focused psych exam: ABSENT: delusional, paranoid, restlessness Results Laboratory Results: 02/20/20 05:38 02/22/20 05:41 02/22/20 02/22/20 02/22/20 05:41 05:41 06:56 Sodium 140.5 Potassium 4.1 Chloride 113 H Carbon Dioxide 21 L Anion Gap 7 BUN 31 H Creatinine 1.62 H Est GFR ( Amer) > 60 Glucose 108 Calcium 8.6 Phosphorus 2.7 Magnesium 1.6 Total Bilirubin 0.4 AST 94 H Alkaline Phosphatase 58 Ammonia 12.9 Total Protein 5.4 L Albumin 3.0 L 3.0 L 0802/18/20 02/18/20 06:57 06:57 16:40 Creatine Kinase 86209 H CK-MB (CK-2) 86.10 H 57.80 H Troponin I 0.307 0.130 NT-Pro-B Natriuret Pep 02/18/20 02/19/20 02/19/20 21:40 06:47 06:47 Creatine Kinase 47144 H CK-MB (CK-2) 54.70 H 35.80 H Troponin I 0.113 NT-Pro-B Natriuret Pep 2170 H 02/20/20 02/21/20 02/22/20 05:38 06:01 05:41 Creatine Kinase 97075 H 5759 H CK-MB (CK-2) 7.57 H Troponin I NT-Pro-B Natriuret Pep Impressions: KUB X-Ray 02/18/20 00:00 IMPRESSION: NO RADIOGRAPHIC EVIDENCE FOR ACUTE ABDOMINAL DISEASE. PROMINENT STOOL THROUGHOUT THE COLON, POSSIBLE CONSTIPATION. Assessment and Plan - Diagnosis (1) Rhabdomyolysis Qualifiers: Rhabdomyolysis type: non-traumatic Qualified Code(s): M62.82 - Rhabdomyolysis Is this a current diagnosis for this admission?: Yes Plan: Pending count is down to 5000. Continue IV fluids and repeat blood work tomorrow (2) LISA (acute kidney injury) Is this a current diagnosis for this admission?: Yes Plan: Renal function continues to improve. Serum creatinine is under 2.0. (3) Acute hepatic failure Qualifiers: Hepatic coma status: without hepatic coma Qualified Code(s): K72.00 - Acute and subacute hepatic failure without coma Is this a current diagnosis for this admission?: Yes Plan: Enzymes continue to improve. (4) Multiple substance abuse Is this a current diagnosis for this admission?: Yes Plan: Encourage cessation of recreational drugs - Time Time Spent with patient: 15-24 minutes Medications reviewed and adjusted accordingly: Yes Anticipated Discharge Disposition: Home, Self Care Anticipated Discharge Timeframe: within 48 hours
[2020-02-22] MEDS: ONDANSETRON HCL INJ/PF 4 MG/2 ML SDV IV PRN (15:34)
[2020-02-22] MEDS: KETOROLAC TROMETHAMINE INJ/PF 30 MG/1 ML SDV IV PRN ×2 (15:34→21:46)
[2020-02-23] MEDS: HYDRALAZINE HCL INJ/PF 20 MG/1 ML SDV IV PRN (00:11)
[2020-02-23] MEDS: ACETAMINOPHEN 325 MG TABLET PO PRN ×3 (01:29→10:07)
[2020-02-23] MEDS: KETOROLAC TROMETHAMINE INJ/PF 30 MG/1 ML SDV IV PRN ×2 (04:13→10:51)
[2020-02-23] MEDS: HEPARIN SOD (PORCINE) 5,000 UNIT/ML 1 ML VIAL SUBCUT SCH ×2 (05:36→14:52)
[2020-02-23] MEDS: PANTOPRAZOLE SODIUM 40 MG TABLET.DR PO SCH (05:45)
[2020-02-23] MEDS: NORMAL SALINE 1000 ML 1,000 ML IV PRN (05:45)
[2020-02-23 10:13] LABS: ANION GAP 10 (5-19); BLOOD UREA NITROGEN 23 mg/dL (7-20); CALCIUM 8.7 mg/dL (8.4-10.2); CARBON DIOXIDE 25 mmol/L (22-30); CHLORIDE 103 mmol/L (98-107); GLUCOSE 120 mg/dL (75-110); POTASSIUM 3.6 mmol/L (3.6-5.0)
[2020-02-23 10:28] LABS: CREATINE KINASE 2036 U/L (55-170)
[2020-02-23] MEDS: METHYLPREDNISOLONE INJ 40 MG/1 ML SDV IV SCH (10:42)
--- NOTE | 2020-02-23 15:29 | PDOC DISCHARGE SUMMARY ---
Impression - Admit/DC Date/PCP Admission Date/Primary Care Provider: 02/18/20 11:28 Discharge Date: 02/23/20 - Discharge Diagnosis (1) Rhabdomyolysis Is this a current diagnosis for this admission?: Yes (2) LISA (acute kidney injury) Is this a current diagnosis for this admission?: Yes (3) Multiple substance abuse Is this a current diagnosis for this admission?: Yes (4) Acute hepatic failure Is this a current diagnosis for this admission?: Yes - Additional Information Resuscitation Status: Full Code Discharge Diet: As Tolerated Discharge Activity: Activity As Tolerated, Other - Return to work February 26 Referrals: [facility] [Provider Group] - 03/08/20 11:00 am Home Medications: Nicotine [Nicoderm 21 mg/24 Hr Transderm Patch] 1 each TD DAILYP PRN patch.[id number] 02/23/20 History of Present Illiness History of Present Illness: SAAD POLLOCK is a 29 year old male with history of hypertension, drug abuse came to the emergency room with complaints of waking up with left hip pain left shoulder pain. Came to the emergency room for further evaluation. In the emergency room found to have a CK of 54,800 with elevated LFTs, acute kidney injury. Medical consult was called for admission. pt received 2 L of IV fluids in the ER at this time. Patient admitted snoring heroine yesterday. Hospital Course Hospital Course: The patient's creatinine kinase was 54,000 on admission. With this he had acute kidney injury and acute liver failure. He was reporting significant pain. With aggressive IV fluids his creatinine kinase slowly proved. It went from 54,000 normally to 2000 today. The acute kidney failure resolved completely and his transaminases continue to improve. He is stable for discharge. He needs to stay well-hydrated and follow-up with a primary provider to recheck laboratory studies Physical Exam Vital Signs: Temp Pulse Resp BP Pulse Ox 97.3 F 62 20 165/96 H 97 02/23/20 11:31 02/23/20 11:31 02/23/20 11:31 02/23/20 11:31 02/23/20 11:31 Intake & Output 02/22/20 02/23/20 02/24/20 06:59 06:59 06:59 Intake Total 7865 4409 Output Total 1058 7061 Balance 1415 -646 Weight 102 kg 99.1 kg General appearance: PRESENT: no acute distress, well-developed Respiratory exam: PRESENT: clear to auscultation benoit, symmetrical, unlabored. ABSENT: rales, rhonchi, tachypnea, wheezes Cardiovascular exam: PRESENT: RRR, +S1, +S2 GI/Abdominal exam: PRESENT: normal bowel sounds, soft. ABSENT: distended, ten derness Neurological exam: PRESENT: alert, awake, oriented to person, oriented to place, oriented to time, oriented to situation Results Laboratory Results: WBC 11.7 10^3/uL (4.0-10.5) H 02/20/20 05:38 RBC 4.42 10^6/uL (4.35-5.55) 02/20/20 05:38 Hgb 13.0 g/dL (13.5-17.0) L 02/20/20 05:38 Hct 37.7 % (37.9-51.0) L 02/20/20 05:38 MCV 85 fl (80-97) 02/20/20 05:38 MCH 29.4 pg (27.0-33.4) 02/20/20 05:38 MCHC 34.4 g/dL (32.0-36.0) 02/20/20 05:38 RDW 13.5 % (11.5-14.0) 02/20/20 05:38 Plt Count 145 10^3/uL (150-450) L 02/20/20 05:38 Lymph % (Auto) 6.6 % (13-45) L 02/20/20 05:38 [place] % (Auto) 4.9 % (3-13) 02/20/20 05:38 Eos % (Auto) 0.0 % (0-6) 02/20/20 05:38 Baso % (Auto) 0.1 % (0-2) 02/20/20 05:38 Absolute Neuts (auto) 10.3 10^3/uL (1.7-8.2) H 02/20/20 05:38 Absolute Lymphs (auto) 0.8 10^3/uL (0.5-4.7) 02/20/20 05:38 Absolute Monos (auto) 0.6 10^3/uL (0.1-1.4) 02/20/20 05:38 Absolute Eos (auto) 0.0 10^3/uL (0.0-0.6) 02/20/20 05:38 Absolute Basos (auto) 0.0 10^3/uL (0.0-0.2) 02/20/20 05:38 Seg Neutrophils % 88.4 % (42-78) H 02/20/20 05:38 ESR 12 mm/hr (0-15) 02/18/20 06:57 Sodium 138.1 mmol/L (137-145) 02/23/20 09:04 Potassium 3.6 mmol/L (3.6-5.0) 02/23/20 09:04 Chloride 103 mmol/L (98-107) 02/23/20 09:04 Carbon Dioxide 25 mmol/L (22-30) 02/23/20 09:04 Anion Gap 10 (5-19) 02/23/20 09:04 BUN 23 mg/dL (7-20) H 02/23/20 09:04 Creatinine 1.22 mg/dL (0.52-1.25) 02/23/20 09:04 Est GFR ( Amer) > 60 (>60) 02/23/20 09:04 Est GFR (MDRD) Non-Af > 60 (>60) 02/23/20 09:04 Glucose 120 mg/dL (75-110) H 02/23/20 09:04 Hemoglobin A1c % 5.0 % (4.7-6.0) 02/19/20 06:47 Uric Acid 10.1 mg/dL (3.5-8.5) H 02/18/20 06:57 Calcium 8.7 mg/dL (8.4-10.2) 02/23/20 09:04 Phosphorus 2.7 mg/dL (2.5-4.5) 02/22/20 05:41 Magnesium 1.6 mg/dL (1.6-2.3) 02/22/20 05:41 Total Bilirubin 0.4 mg/dL (0.2-1.3) 02/22/20 05:41 Direct Bilirubin 0.3 mg/dL (0.0-0.4) 02/22/20 05:41 Neonat Total Bilirubin Not Reportable 02/22/20 05:41 Neonat Direct Bilirubin Not Reportable 02/22/20 05:41 Neonat Indirect Bili Not Reportable 02/22/20 05:41 AST 94 U/L (17-59) H 02/22/20 05:41 ALT 104 U/L (<50) H 02/22/20 05:41 Alkaline Phosphatase 58 U/L (38-126) 02/22/20 05:41 Ammonia 12.9 umol/L (9-33) 02/22/20 06:56 Creatine Kinase 2036 U/L (55-170) H 02/23/20 09:04 CK-MB (CK-2) 7.57 ng/mL (<4.55) H 02/21/20 06:01 Troponin I 0.113 ng/mL 02/18/20 21:40 C-Reactive Protein 56.7 mg/L (<10.0) H 02/18/20 06:57 NT-Pro-B Natriuret Pep 2170 pg/mL (<125) H 02/19/20 06:47 Total Protein 5.4 g/dL (6.3-8.2) L 02/22/20 05:41 Albumin 3.0 g/dL (3.5-5.0) L 02/22/20 05:41 Albumin 3.0 g/dL (3.5-5.0) L 02/22/20 05:41 Triglycerides 138 mg/dL (<150) 02/19/20 06:47 Cholesterol 131.42 mg/dL (0-200) 02/19/20 06:47 LDL Cholesterol Direct 72 mg/dL (<100) 02/19/20 06:47 VLDL Cholesterol 28.0 mg/dL (10-31) 02/19/20 06:47 HDL Cholesterol 30 mg/dL (>40) L 02/19/20 06:47 Lipase 54.0 U/L (23-300) 02/19/20 06:47 TSH 0.36 uIU/mL (0.47-4.68) L 02/19/20 06:47 Urine Color LUBNA 02/18/20 07:35 Urine Appearance SLIGHTLY-CLOUDY 02/18/20 07:35 Urine pH 5.0 (5.0-9.0) 02/18/20 07:35 Ur Specific [place] 1.019 02/18/20 07:35 Urine Protein 100 mg/dL (NEGATIVE) H 02/18/20 07:35 Urine Glucose (UA) NEGATIVE mg/dL (NEGATIVE) 02/18/20 07:35 Urine Ketones NEGATIVE mg/dL (NEGATIVE) 02/18/20 07:35 Urine Blood LARGE (NEGATIVE) H 02/18/20 07:35 Urine Nitrite NEGATIVE (NEGATIVE) 02/18/20 07:35 Urine Bilirubin NEGATIVE (NEGATIVE) 02/18/20 07:35 Urine Urobilinogen NEGATIVE mg/dL (<2.0) 02/18/20 07:35 Ur Leukocyte Esterase NEGATIVE (NEGATIVE) 02/18/20 07:35 Urine WBC (Auto) 9 /HPF 02/18/20 07:35 Urine RBC (Auto) 1 /HPF 02/18/20 07:35 U Hyaline Cast (Auto) 1 /LPF 02/18/20 07:35 Urine Bacteria (Auto) TRACE /HPF 02/18/20 07:35 Squamous Epi Cells Auto <1 /HPF 02/18/20 07:35 Urine Mucus (Auto) RARE /LPF 02/18/20 07:35 Urine Ascorbic Acid NEGATIVE (NEGATIVE) 02/18/20 07:35 Urine Opiates Screen UNCONFIRMED POSITIVE 02/18/20 07:35 Urine Methadone Screen NEGATIVE 02/18/20 07:35 Ur Barbiturates Screen NEGATIVE 02/18/20 07:35 Ur Phencyclidine Scrn NEGATIVE 02/18/20 07:35 Ur Amphetamines Screen NEGATIVE 02/18/20 07:35 U Benzodiazepines Scrn UNCONFIRMED POSITIVE 02/18/20 07:35 Urine Cocaine Screen NEGATIVE 02/18/20 07:35 U Marijuana (THC) Screen UNCONFIRMED POSITIVE 02/18/20 07:35 Serum Alcohol < 10 mg/dL (NONE DETECTED) 02/18/20 06:57 02/18/20 02/18/20 02/18/20 06:57 16:40 21:40 CK-MB (CK-2) 86.10 H 57.80 H 54.70 H Troponin I 0.307 0.130 0.113 NT-Pro-B Natriuret Pep 02/19/20 02/21/20 06:47 06:01 CK-MB (CK-2) 35.80 H 7.57 H Troponin I NT-Pro-B Natriuret Pep 2170 H Impressions: KUB X-Ray 02/18/20 00:00 IMPRESSION: NO RADIOGRAPHIC EVIDENCE FOR ACUTE ABDOMINAL DISEASE. PROMINENT STOOL THROUGHOUT THE COLON, POSSIBLE CONSTIPATION. Plan Health Concerns: Needs to stay well-hydrated. Needs to avoid recreational drugs. Especially needs to drink fluids when working and seek medical attention sooner when he is feeling ill. Plan of Treatment: Stable hydrated. Follow-up with primary care provider or walk-in clinic next week for repeat blood work. Goals: Complete resolution of rhabdomyolysis, acute kidney injury and acute liver failure Time Spent: Greater than 30 Minutes Stroke Is this a Stroke Patient?: No Acute Heart Failure - Is this a Heart Failure Patient?: No
[2020-02-23 15:47] VITALS: BP 130/76
== END 2020-02-23 16:09 | disposition home or self-care (01) | DRG 558 ==
LOC: ER 04:55 → EH 11:28 → 3S 14:50
PROVIDERS: ADMIT Internal Medicine; ATTEND Hospitalist
DX: M62.82 Rhabdomyolysis (principal); N17.9 Acute kidney failure, unspecified; E87.2 Acidosis; K72.90 Hepatic failure, unspecified without coma; F19.10 Other psychoactive substance abuse, uncomplicated; I10 Essential (primary) hypertension; F17.210 Nicotine dependence, cigarettes, uncomplicated; Z95.820 Peripheral vascular angioplasty status with implants and grafts; Z88.7 Allergy status to serum and vaccine; Z79.899 Other long term (current) drug therapy; Z82.49 Family history of ischemic heart disease and other diseases of the circulatory system
CPT/HCPCS: 36415; 74018; 80048; 80053; 80061; 80069; 80076; 80307; 81001; 82140; 82550; 82553; 83036; 83690; 83735; 83880; 84443; 84484; 84550; 85025; 85652; 86140; 87040; 87070; 93005; 93010; 96361; 96374; 96375; 99285; J0360; J0610; J1170; J1644; J1885; J2270; J2405; J2550; J2920; J2930; J3490; J7030